=== PATIENT | male | born 1965 | race Caucasian/White ===

== ENCOUNTER 2021-07-10 17:11 | Emergency (ER) | payer BC ==
--- NOTE | 2021-07-10 17:30 | ED ---
URI HPI - General Chief Complaint: Upper Respiratory Infection Stated Complaint: COVID+,Wants Infusion Time Seen by Provider: 07/10/21 17:29 Source: patient, RN notes reviewed Mode of arrival: ambulatory Limitations: no limitations - History of Present Illness Initial Comments: This a 55-year-old male presents emergency Department with chief complaint of COVID-19. Patient symptoms started last 3 days. Patient has a positive test results from urgent care. Patient has autoimmune hepatitis on immunosuppressants. Patient states that he is very concerned given that he is. Patient reports no fever mild congestion bodyaches and a cough. Patient has some her symptoms. - Related Data Allergies Allergy/AdvReac Type Severity Reaction Status Date / Time ciprofloxacin [From Cipro] Allergy Rash/Hives Verified 07/10/21 17:26 Review of Systems ROS Statement: Those systems with pertinent positive or pertinent negative responses have been documented in the HPI. ROS Other: All systems not noted in ROS Statement are negative. Past Medical History Additional Past Medical History / Comment(s): Autoimmune hepatits History of Any Multi-Drug Resistant Organisms: None Reported Past Surgical History: Cholecystectomy, Orthopedic Surgery Past Psychological History: No Psychological Hx Reported Smoking Status: Never smoker Past Alcohol Use History: Occasional Past Drug Use History: None Reported General Exam Limitations: no limitations General appearance: alert, in no apparent distress Head exam: Present: atraumatic, normocephalic, normal inspection Eye exam: Present: normal appearance, PERRL, EOMI. Absent: scleral icterus, conjunctival injection, periorbital swelling ENT exam: Present: normal exam, mucous membranes moist Neck exam: Present: normal inspection, full ROM. Absent: tenderness, meningismus, lymphadenopathy Respiratory exam: Present: normal lung sounds bilaterally. Absent: respiratory distress, wheezes, rales, rhonchi, stridor Cardiovascular Exam: Present: regular rate, normal rhythm, normal heart sounds. Absent: systolic murmur, diastolic murmur, rubs, gallop, clicks Course Vital Signs 07/10/21 07/10/21 17:17 17:49 Temperature 98.9 F Pulse Rate 83 Respiratory 19 18 Rate Blood Pressure 189/94 O2 Sat by Pulse 96 Oximetry Medical Decision Making - Medical Decision Making Patient received monoclonal antibodies and discharged in stable condition return parameters discussed. Disposition Clinical Impression: COVID-19 Disposition: HOME SELF-CARE Condition: Stable Instructions (If sedation given, give patient instructions): Coronavirus Disease 2019 (COVID-19) Additional Instructions: Please return to the Emergency Department if symptoms worsen or any other concerns. Is patient prescribed a controlled substance at d/c from ED?: No Referrals: Valentin Morin MD [Primary Care Provider] - 1-2 days Time of Disposition: 17:30
[2021-07-10] MEDS: BAMLANIVIMAB (EUA) 700 MG, ETESEVIMAB (EUA) 1,400 MG in SODIUM CHLORIDE 0.9% 100 ML IVPB ONE (18:33)
[2021-07-10] MEDS: SODIUM CHLORIDE 0.9% 50 ML IVPB ONE (19:12)
[2021-07-10 20:19] VITALS: BP 154/81; PULSE 71; RESP 16; TEMP 98.6
== END 2021-07-10 20:18 | disposition home or self-care (01) ==
LOC: EC 17:11
DX: U07.1 COVID-19 (principal); Z88.1 Allergy status to other antibiotic agents
CPT/HCPCS: 99283; J3490